=== PATIENT | male | born 1995 | race Caucasian/White ===

== ENCOUNTER 2017-08-17 13:38 | Inpatient (IN) ==
[2017-08-17 14:28] LABS: Bilirubin,Urine Small (Negative); Blood,Urine Negative (Negative); Clarity,Urine Clear (Clear); Color,Urine Dark Yellow (Yellow); Glucose,Urine (UA) Normal (Normal); Ketones,Urine Negative (Negative); Leukocyte Esterase,Urine Negative (Negative); Nitrite,Urine Negative (Negative); Protein,Urine 30 mg/dL (Neg-Trace); Specific Gravity,Urine > 1.030 (1.010-1.025); Urobilinogen,Urine Normal (Normal)
[2017-08-17 14:31] LABS: Bacteria,Urine None Seen per hpf (None-Few); Squamous Epithelial Cell,Urine Many per lpf (None-Few); WBC,Urine 0-3 per hpf (0-3)
[2017-08-17 14:39] LABS: Amphetamine Screen,Urine Negative ng/mL (Cutoff=1000); Barbiturate Screen,Urine Negative ng/mL (Cutoff=200); Benzodiazepines Screen,Urine Negative ng/mL (Cutoff=200); Cannabinoid Screen,Urine Negative ng/mL (Cutoff = 50); Cocaine Screen,Urine Negative ng/mL (Cutoff= 300); Opiate Screen,Urine Negative ng/mL (Cutoff=300); Phencyclidine Screen,Urine Negative ng/mL (Cutoff=25)
[2017-08-17 14:47] LABS: Acetaminophen < 1.0 mcg/mL (10-30); Basophils # 0.1 K/mcL (0.0-0.2); Basophils % 0.6 %; Eosinophils # 0.1 K/mcL (0.0-0.6); Eosinophils % 1.5 %; Ethanol < 10 mg/dL (0-10); Hematocrit 45.9 % (37.5-50.1); Hemoglobin 15.8 g/dL (12.9-16.9); Immature Granulocytes % 0.5 % (0-4); Lymphocytes # 1.4 K/mcL (0.6-4.6); Lymphocytes % 17.6 %; Mean Corpuscular HGB Conc 34.4 g/dL (31.6-35.5); Mean Corpuscular Hemoglobin 28.1 pg (28.0-33.3); Mean Corpuscular Volume 81.5 fL (83.0-100.0); Mean Platelet Volume 9.5 fL (9.4-12.4); Monocytes # 0.7 K/mcL (0.0-1.3); Monocytes % 8.2 %; Neutrophils # 5.6 K/mcL (1.6-8.9); Nucleated Red Blood Cells 0.3 /100 WBC (0); Platelet Count 271 K/mcL (140-400); Red Blood Count 5.63 M/mcL (4.19-5.50); Red Cell Distribution Width 12.4 % (11.5-14.5); Salicylate < 5.0 mg/dL (15.0-30.0); Segmented Neutrophils % 71.6 %
[2017-08-17 14:51] LABS: BUN/Creatinine Ratio 13 (6-26); Blood Urea Nitrogen 10 mg/dL (6-20); Carbon Dioxide 31 mEq/L (23-29); Chloride 102 mEq/L (98-107); Glucose 101 mg/dL (70-105); Osmolality,Calculated 289 (280-300); Potassium 3.8 mEq/L (3.5-5.1); Sodium 140 mEq/L (136-145); eGFR For African Americans > 60 (> 60); eGFR For Non-African Americans > 60 (> 60)
[2017-08-17 14:52] LABS: Mucus,Urine Many (Few)
--- NOTE | 2017-08-17 15:08 | Emergency Department Note ---
Disposition Clinical Impression: Suicidal ideation Disposition: Admitted As Inpatient Condition: Fair Psych HPI - General Chief Complaint: ED Psychiatric Symptoms Stated Complaint: SI Time Seen by Provider: 08/17/17 14:32 Source: patient Nursing Notes Reviewed: Yes Vital Signs Reviewed: Yes - History of Present Illness HPI Narrative: 22-year-old comes emergency room because of suicidal ideations. 2 days ago he had a gun with plan to shoot himself but his roommate came home and so he decided not to do it. He recently lost his job due to substance abuse. He has ongoing drug abuse issues mostly in the form of crushing and snorting oral pain medications including Percocet, OxyContin and Neurontin. No IV drug abuse. He denies any toxic ingestions in the past 48 hours. Pt complaint: suicidal ideation If medical clearance, reason: psychiatric condition Onset (ago): day(s) Duration: constant History of similar episodes: Yes Improves with: none Worsens with: drug use, other Context: recent drug abuse Alleged intoxication: No Associated Psychiatric Symptoms: depression - Related Data Home Medications Medication Instructions Recorded Confirmed No Known Home Drugs 08/10/16 08/10/16 Allergies Allergy/AdvReac Type Severity Reaction Status Date / Time Amoxicillin [From Augmentin] Allergy Hives Verified 08/10/16 11:08 cephalexin [From Keflex] Allergy Hives Verified 08/10/16 11:08 clavulanic acid Allergy Hives Verified 08/10/16 11:08 [From Augmentin] Erythromycin Base Allergy Hives Verified 08/10/16 11:08 All systems ED: reviewed and negative except as stated. Constitutional: Denies: fever Cardiovascular: Denies: chest pain, palpitations Psychiatric: Reports: depression, suicidal thoughts. Denies: anxiety Past Medical History - Past Medical History Attestation: Yes The following information was validated with the patient. Medical history: Reports: no medical history Psychiatric history: Reports: bipolar, PTSD, prior suicide attempt, previous psychiatric hospitalization - Social History Smoking Status: Never smoker Smokeless Tobacco Status: Yes Alcohol use: Reports: none Drug use: Reports: opiates, prescription drug abuse Physical Exam - General Limitations: no limitations General appearance: alert - Head Head exam: atraumatic, normocephalic - ENT ENT exam: normal exam, normal oropharynx - Neck Neck exam: Present: normal inspection - Chest Chest inspection: Present: normal inspection - Respiratory Respiratory exam: Present: normal lung sounds bilaterally. Absent: respiratory distress - Cardiovascular Cardiovascular exam: Present: regular rate. Absent: normal rhythm - Abdominal Exam Abdominal exam: Present: soft, Non-Tender - Extremities Exam Extremities exam: Present: normal inspection - Expanded Lower Extremity Exam Neurovascular/Tendon exam: Present: normal capillary refill - Back Exam Back exam: Present: normal inspection - Neurological Exam Neurological exam: Present: alert, oriented X3 - Psychiatric Psychiatric exam: Present: normal affect. Absent: agitated, anxious - Skin Skin exam: Present: warm, dry Course - Reevaluation(s) Reevaluation #1: Medically cleared for psychiatric evaluation Time: 15:10 Vital Signs Temperature 98.4 F 08/17/17 13:47 Pulse Rate 105 08/17/17 13:47 Respiratory Rate 18 08/17/17 13:47 Blood Pressure 144/71 08/17/17 13:47 O2 Sat by Pulse Oximetry 98 08/17/17 13:47 Temperature 98.7 F 08/17/17 21:00 Pulse Rate 85 08/17/17 21:00 Respiratory Rate 16 08/17/17 21:00 Blood Pressure 119/75 08/17/17 21:00 O2 Sat by Pulse Oximetry 98 08/17/17 13:47 Oxygen Delivery Oxygen Delivery Room Air Psych - Lab Data Result diagrams: 08/17/17 13:53 08/17/17 13:53 Lab Results 08/17/17 08/17/17 08/17/17 Range/Units 13:53 13:53 13:53 WBC 7.9 (4.3-11.1) K/mcL RBC 5.63 H (4.19-5.50) M/mcL Hgb 15.8 (12.9-16.9) g/dL Hct 45.9 (37.5-50.1) % MCV 81.5 L (83.0-100.0) fL MCH 28.1 (28.0-33.3) pg MCHC 34.4 (31.6-35.5) g/dL RDW 12.4 (11.5-14.5) % Plt Count 271 (140-400) K/mcL MPV 9.5 (9.4-12.4) fL Immature Gran % 0.5 (0-4) % Seg Neutrophils % 71.6 % Lymphocytes % 17.6 % Monocytes % 8.2 % Eosinophils % 1.5 % Basophils % 0.6 % Neutrophils # 5.6 (1.6-8.9) K/mcL Lymphocytes # 1.4 (0.6-4.6) K/mcL Monocytes # 0.7 (0.0-1.3) K/mcL Eosinophils # 0.1 (0.0-0.6) K/mcL Basophils # 0.1 (0.0-0.2) K/mcL Nucleated RBCs/100 WBC 0.3 H (0) /100 WBC Sodium (136-145) mEq/L Potassium (3.5-5.1) mEq/L Chloride (98-107) mEq/L Carbon Dioxide (23-29) mEq/L BUN (6-20) mg/dL Creatinine (0.70-1.30) mg/dL Est GFR ( Amer) (> 60) Est GFR (Non-Af Amer) (> 60) BUN/Creatinine Ratio (6-26) Glucose (70-105) mg/dL Calculated Osmolality (280-300) Calcium (8.6-10.3) mg/dL Urine Color Dark Yellow (Yellow) Urine Clarity Clear (Clear) Urine pH 6.0 (5.0-8.0) pH Units Ur Specific [place] > 1.030 H (1.010-1.025) Urine Protein 30 H (Neg-Trace) mg/dL Urine Glucose (UA) Normal (Normal) mg/dL Urine Ketones Negative (Negative) mg/dL Urine Blood Negative (Negative) Urine Nitrite Negative (Negative) Urine Bilirubin Small H (Negative) Urine Urobilinogen Normal (Normal) mg/dL Ur Leukocyte Esterase Negative (Negative) Urine Microscopic RBC 3-5 H (0-3) per hpf Urine Microscopic WBC 0-3 (0-3) per hpf Ur Squamous Epith Cells Many H (None-Few) per lpf Urine Bacteria None Seen (None-Few) per hpf Urine Mucus Many H (Few) Ur Culture Indicated? NO (NO) Salicylates (15.0-30.0) mg/dL Urine Opiates Screen Negative (Lyfupu=823) ng/mL Acetaminophen (10-30) mcg/mL Ur Barbiturates Screen Negative (Vyqoiz=233) ng/mL Ur Phencyclidine Scrn Negative (Cutoff=25) ng/mL Ur Amphetamines Screen Negative (Rkisoz=9748) ng/mL U Benzodiazepines Scrn Negative (Scerly=648) ng/mL Urine Cocaine Screen Negative (Cutoff= 300) ng/mL U Marijuana (THC) Screen Negative (Cutoff = 50) ng/mL Ethyl Alcohol (0-10) mg/dL 08/17/17 Range/Units 13:53 WBC (4.3-11.1) K/mcL RBC (4.19-5.50) M/mcL Hgb (12.9-16.9) g/dL Hct (37.5-50.1) % MCV (83.0-100.0) fL MCH (28.0-33.3) pg MCHC (31.6-35.5) g/dL RDW (11.5-14.5) % Plt Count (140-400) K/mcL MPV (9.4-12.4) fL Immature Gran % (0-4) % Seg Neutrophils % % Lymphocytes % % Monocytes % % Eosinophils % % Basophils % % Neutrophils # (1.6-8.9) K/mcL Lymphocytes # (0.6-4.6) K/mcL Monocytes # (0.0-1.3) K/mcL Eosinophils # (0.0-0.6) K/mcL Basophils # (0.0-0.2) K/mcL Nucleated RBCs/100 WBC (0) /100 WBC Sodium 140 (136-145) mEq/L Potassium 3.8 (3.5-5.1) mEq/L Chloride 102 (98-107) mEq/L Carbon Dioxide 31 H (23-29) mEq/L BUN 10 (6-20) mg/dL Creatinine 0.80 (0.70-1.30) mg/dL Est GFR ( Amer) > 60 (> 60) Est GFR (Non-Af Amer) > 60 (> 60) BUN/Creatinine Ratio 13 (6-26) Glucose 101 (70-105) mg/dL Calculated Osmolality 289 (280-300) Calcium 10.0 (8.6-10.3) mg/dL Urine Color (Yellow) Urine Clarity (Clear) Urine pH (5.0-8.0) pH Units Ur Specific [place] (1.010-1.025) Urine Protein (Neg-Trace) mg/dL Urine Glucose (UA) (Normal) mg/dL Urine Ketones (Negative) mg/dL Urine Blood (Negative) Urine Nitrite (Negative) Urine Bilirubin (Negative) Urine Urobilinogen (Normal) mg/dL Ur Leukocyte Esterase (Negative) Urine Microscopic RBC (0-3) per hpf Urine Microscopic WBC (0-3) per hpf Ur Squamous Epith Cells (None-Few) per lpf Urine Bacteria (None-Few) per hpf Urine Mucus (Few) Ur Culture Indicated? (NO) Salicylates < 5.0 L (15.0-30.0) mg/dL Urine Opiates Screen (Yvozns=008) ng/mL Acetaminophen < 1.0 L (10-30) mcg/mL Ur Barbiturates Screen (Nuacrd=456) ng/mL Ur Phencyclidine Scrn (Cutoff=25) ng/mL Ur Amphetamines Screen (Pshzrq=5676) ng/mL U Benzodiazepines Scrn (Ztszku=929) ng/mL Urine Cocaine Screen (Cutoff= 300) ng/mL U Marijuana (THC) Screen (Cutoff = 50) ng/mL Ethyl Alcohol < 10 (0-10) mg/dL Psychiatric Medical Clearance - Medical Clearance Checklist Medical History: Acute hyperventilation (Inactive) No Social History Section defined Current Vitals: Last Vital Signs Temp 98.7 F 08/17/17 21:00 Pulse 85 08/17/17 21:00 Resp 16 08/17/17 21:00 BP 119/75 08/17/17 21:00 Pulse Ox 98 08/17/17 13:47 Psychiatric Lab Panel: Drug Levels and Toxicity 08/17/17 08/17/17 13:53 13:53 Urine Opiates Screen Negative Acetaminophen < 1.0 L Ur Barbiturates Screen Negative Ur Phencyclidine Scrn Negative Ur Amphetamines Screen Negative U Benzodiazepines Scrn Negative Urine Cocaine Screen Negative U Marijuana (THC) Screen Negative Ethyl Alcohol < 10 Abnormal Labs: Abnormal lab results RBC 5.63 M/mcL (4.19-5.50) H 08/17/17 13:53 MCV 81.5 fL (83.0-100.0) L 08/17/17 13:53 Nucleated RBCs/100 WBC 0.3 /100 WBC (0) H 08/17/17 13:53 Carbon Dioxide 31 mEq/L (23-29) H 08/17/17 13:53 Ur Specific [place] > 1.030 (1.010-1.025) H 08/17/17 13:53 Urine Protein 30 mg/dL (Neg-Trace) H 08/17/17 13:53 Urine Bilirubin Small (Negative) H 08/17/17 13:53 Urine Microscopic RBC 3-5 per hpf (0-3) H 08/17/17 13:53 Ur Squamous Epith Cells Many per lpf (None-Few) H 08/17/17 13:53 Urine Mucus Many (Few) H 08/17/17 13:53 Salicylates < 5.0 mg/dL (15.0-30.0) L 08/17/17 13:53 Acetaminophen < 1.0 mcg/mL (10-30) L 08/17/17 13:53 Statement of Medical Clearance: I have evaluated the patient, reviewed diagnostic information, and certify that the patient's medical condition is sufficiently stable that transfer to the psychiatric unit does not pose a significant risk of deterioration.
[2017-08-17] MEDS ORDERED: Acetaminophen 325 MG TABLET PO PRN (17:14)
[2017-08-17] MEDS ORDERED: *HR* LORazepam 1 MG TABLET PO PRN (17:14)
[2017-08-17] MEDS ORDERED: *HR* LORazepam 2 MG/ML VIAL IM PRN (17:14)
[2017-08-17] MEDS ORDERED: Mag Hydrox/Al Hydrox/Simeth 30 ML UDC PO PRN (17:14)
[2017-08-17] MEDS ORDERED: Haloperidol Lactate 5 MG/ML VIAL IM PRN (17:14)
[2017-08-17] MEDS ORDERED: MOM Conc 10 ML UD.LIQ PO PRN (17:14)
[2017-08-17] MEDS: traZODone 50 MG TABLET PO PRN (21:50)
--- NOTE | 2017-08-18 10:48 | Psychiatry History & Physical ---
Date of Encounter: 08/18/17 Time of Encounter: 10:25 History of Present Illness Patient Stated Chief Complaint: i have been suicidal Medicare Admission Attestation: For traditional Medicare patients the provided hospital inpatient services are reasonable and necessary and in the case of services not specified as inpatient -only under 42 CFR 419.22 (n), that they are appropriately provided as inpatient services in accordance 42 CFR 412.3. For Critical Access Hospital the patient may reasonably be expected to be discharged or transferred to a hospital within 96 hours after admission to the Critical Access Hospital. Admitted From: Emergency Dept Plans for Post Hospital Care: Home History of Present Illness: Mr. Canas is a 22 year old male evaluated today , admitted from ED because of suicidal ideations, this is his 3 admission . 2 days ago he had a gun with plan to shoot himself but his roommate came home and so he decided not to do it. { roomates gun} He recently lost his job due to substance abuse. He has ongoing drug abuse issues mostly in the form of crushing and snorting oral pain medications including Percocet, OxyContin and Neurontin. No IV drug abuse. Patient was admitted in 07/26 ,08/23 to for substance use , suicidal ideation and depression . 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 AT present feeling sad , angry , depress, lack of motivation , suicidal thoughts not as much as before but still hopeless, worthless, useless and guilt. He relapsed on opiates last used 4-5 days ago , denies other drugs or alcohol. no psychosis , no bryson. denies any legal problems, raised by grand parents , mother has mental illness. Past Med Surg Social Fam HX - Past Medical History Medical history: no medical history - Past Surgical History Surgical History: no surgical history - Social History Smoking Status: Never smoker Smokeless Tobacco Status: Yes Alcohol use: none Drug use: opiates, prescription drug abuse Occupational status: previously employed Current living situation: Home, With Family Activity Level: Independent ambulation Recent Out of Country Travel Within the Last 8 Weeks: No Exposure or Possible Exposure to Illness During Travel: No Medications & Allergies No Known Home Drugs 08/10/16 [History] 3 Allergy/AdvReac Type Severity Reaction Status Date / Time Amoxicillin [From Augmentin] Allergy Hives Verified 08/10/16 11:08 cephalexin [From Keflex] Allergy Hives Verified 08/10/16 11:08 clavulanic acid Allergy Hives Verified 08/10/16 11:08 [From Augmentin] Erythromycin Base Allergy Hives Verified 08/10/16 11:08 Review of Systems Psychiatric: Reports: depression, abnormal sleep pattern, suicidal ideation, change in appetite, hopelessness, irritability Mental Status Exam Patient orientation: Yes Person, Yes Time, Yes Place Level of alertness: Alert Patient appearance: Appropriate Behavior: cooperative, anxious, withdrawn Psychomotor activity: Normal Eye contact: Maintains Eye Contact Mood description: Depressed, Anxious Affect description: congruent with mood, dysphoric Speech pattern: Coherent, Slowed Speech volume: Normal Thought process: Logical Thought content: Yes Suicidal ideation, Yes Guilt Attention span: Capable of Focused Attention Memory description: Grossly Intact Patient reliability: Reliable Historian Intelligence estimate: Average Judgment: Poor Insight: Partial Exam - HEENT Head exam IM: Present: atraumatic, normal inspection, normocephalic Eye exam IM: Present: normal appearance ENT exam IM: Present: normal exam - Neurological Neurological exam IM: Present: alert, CN II-XII intact, normal gait, oriented X3 Results - Vital Signs Vital signs: Temp Pulse Resp BP Pulse Ox 98.3 F 79 16 132/77 98 08/18/17 09:00 08/18/17 09:00 08/18/17 09:00 08/18/17 09:00 08/17/17 13:47 - Labs Labs: Laboratory Last Values WBC 7.9 K/mcL (4.3-11.1) 08/17/17 13:53 RBC 5.63 M/mcL (4.19-5.50) H 08/17/17 13:53 Hgb 15.8 g/dL (12.9-16.9) 08/17/17 13:53 Hct 45.9 % (37.5-50.1) 08/17/17 13:53 MCV 81.5 fL (83.0-100.0) L 08/17/17 13:53 MCH 28.1 pg (28.0-33.3) 08/17/17 13:53 MCHC 34.4 g/dL (31.6-35.5) 08/17/17 13:53 RDW 12.4 % (11.5-14.5) 08/17/17 13:53 Plt Count 271 K/mcL (140-400) 08/17/17 13:53 MPV 9.5 fL (9.4-12.4) 08/17/17 13:53 Immature Gran % 0.5 % (0-4) 08/17/17 13:53 Seg Neutrophils % 71.6 % 08/17/17 13:53 Lymphocytes % 17.6 % 08/17/17 13:53 Monocytes % 8.2 % 08/17/17 13:53 Eosinophils % 1.5 % 08/17/17 13:53 Basophils % 0.6 % 08/17/17 13:53 Neutrophils # 5.6 K/mcL (1.6-8.9) 08/17/17 13:53 Lymphocytes # 1.4 K/mcL (0.6-4.6) 08/17/17 13:53 Monocytes # 0.7 K/mcL (0.0-1.3) 08/17/17 13:53 Eosinophils # 0.1 K/mcL (0.0-0.6) 08/17/17 13:53 Basophils # 0.1 K/mcL (0.0-0.2) 08/17/17 13:53 Nucleated RBCs/100 WBC 0.3 /100 WBC (0) H 08/17/17 13:53 Sodium 140 mEq/L (136-145) 08/17/17 13:53 Potassium 3.8 mEq/L (3.5-5.1) 08/17/17 13:53 Chloride 102 mEq/L (98-107) 08/17/17 13:53 Carbon Dioxide 31 mEq/L (23-29) H 08/17/17 13:53 BUN 10 mg/dL (6-20) 08/17/17 13:53 Creatinine 0.80 mg/dL (0.70-1.30) 08/17/17 13:53 Est GFR ( Amer) > 60 (> 60) 08/17/17 13:53 Est GFR (Non-Af Amer) > 60 (> 60) 08/17/17 13:53 BUN/Creatinine Ratio 13 (6-26) 08/17/17 13:53 Glucose 101 mg/dL (70-105) 03 13:53 Calculated Osmolality 289 (280-300) 08/17/17 13:53 Calcium 10.0 mg/dL (8.6-10.3) 08/17/17 13:53 Urine Color Dark Yellow (Yellow) 08/17/17 13:53 Urine Clarity Clear (Clear) 08/17/17 13:53 Urine pH 6.0 pH Units (5.0-8.0) 03 13:53 Ur Specific [place] > 1.030 (1.010-1.025) H 08/17/17 13:53 Urine Protein 30 mg/dL (Neg-Trace) H 08/17/17 13:53 Urine Glucose (UA) Normal mg/dL (Normal) 08/17/17 13:53 Urine Ketones Negative mg/dL (Negative) 08/17/17 13:53 Urine Blood Negative (Negative) 08/17/17 13:53 Urine Nitrite Negative (Negative) 08/17/17 13:53 Urine Bilirubin Small (Negative) H 08/17/17 13:53 Urine Urobilinogen Normal mg/dL (Normal) 08/17/17 13:53 Ur Leukocyte Esterase Negative (Negative) 08/17/17 13:53 Urine Microscopic RBC 3-5 per hpf (0-3) H 08/17/17 13:53 Urine Microscopic WBC 0-3 per hpf (0-3) 03 13:53 Ur Squamous Epith Cells Many per lpf (None-Few) H 08/17/17 13:53 Urine Bacteria None Seen per hpf (None-Few) 08/17/17 13:53 Urine Mucus Many (Few) H 08/17/17 13:53 Ur Culture Indicated? NO (NO) 08/17/17 13:53 Salicylates < 5.0 mg/dL (15.0-30.0) L 08/17/17 13:53 Urine Opiates Screen Negative ng/mL (Hlowuv=241) 08/17/17 13:53 Acetaminophen < 1.0 mcg/mL (10-30) L 08/17/17 13:53 Ur Barbiturates Screen Negative ng/mL (Msswto=432) 08/17/17 13:53 Ur Phencyclidine Scrn Negative ng/mL (Cutoff=25) 08/17/17 13:53 Ur Amphetamines Screen Negative ng/mL (Aattlv=1752) 08/17/17 13:53 U Benzodiazepines Scrn Negative ng/mL (Lxptfu=444) 08/17/17 13:53 Urine Cocaine Screen Negative ng/mL (Cutoff= 300) 08/17/17 13:53 U Marijuana (THC) Screen Negative ng/mL (Cutoff = 50) 08/17/17 13:53 Ethyl Alcohol < 10 mg/dL (0-10) 08/17/17 13:53 Assessment and Plan (1) Suicidal ideation Current visit: Yes Status: Acute Plan: Admit inpatient for safety and stabilization, Close observation, Suicide Precautions per unit protocol, Encourage participation in unit milieu, Group Therapy, Monitor sleep, Monitor appetite, Secure weapons, Family/Supportive other meeting Additional Plan: patient remains suicidal , denies any weapons at home . Risks, benefits, side effects, alternatives discussed w/pt: Yes Patient agreeable to treatment: Yes Plans for Post Hospital Care: at Home (2) Major depressive disorder, recurrent, severe w/o psychotic behavior Current visit: Yes Status: Acute Plan: Admit inpatient for safety and stabilization, Close observation, Suicide Precautions per unit protocol, Encourage participation in unit milieu, Group Therapy, Monitor sleep, Monitor appetite, Family/Supportive other meeting Additional Plan: Patient remains suicidal and needs inpatient care for stabilization and safety. will start medications zoloft 50 mg Risks, benefits, side effects, alternatives discussed w/pt: Yes Patient agreeable to treatment: Yes Plans for Post Hospital Care: at Home
[2017-08-18] MEDS: traZODone 50 MG TABLET PO PRN (21:31)
--- NOTE | 2017-08-19 11:27 | Psychiatry Progress Note ---
Date of Encounter: 08/19/17 Time of Encounter: 11:10 Subjective Interval history: Patient seen today , case d/w staff , patient compliant with treatment plan. feeling better , slept well , denies suicidal thoughts, depression is ther but feels medications helping . denies side effects. continue same treatment plan. Review of Systems Psychiatric: Reports: depression, abnormal sleep pattern, suicidal ideation, change in appetite, hopelessness, irritability Results - Vital Signs Vital Signs: Temp Pulse Resp BP Pulse Ox 97.9 F 74 14 122/81 98 08/19/17 09:00 08/19/17 09:00 08/19/17 09:00 08/19/17 09:00 08/17/17 13:47 Assessment and Plan (1) Suicidal ideation Current visit: Yes Status: Acute Risks, benefits, side effects, alternatives discussed w/pt: Yes Patient agreeable to treatment: Yes (2) Major depressive disorder, recurrent, severe w/o psychotic behavior Current visit: Yes Status: Acute Risks, benefits, side effects, alternatives discussed w/pt: Yes Patient agreeable to treatment: Yes Consult Discharge Plan - Plan Referrals: [place] [facility] [place] - 08/23/17 12:30 pm (The above appointment is with Salma Reynolds. When you come to your first appointment, you will be completing paperwork, meeting with a counselor, and developing a treatment plan. You will receive follow- up appointments for on-going services , which could include community support, mental health and substance abuse counseling, groups/partial hospitalization programming, medication assisted treatment, and psychiatric medication management. Please bring the following with you to your first visit to the clinic: 1) proof of household income (two consecutive pay stubs, social security award letter, bank statement, statement letter from [facility], child support statement, IRS 1040 or W2 form, or a statement from the person who financially supports you stating they help provide for your basic needs), 2) proof of residency (drivers license, a piece of mail showing your address, a statement from person you live with verifying you live at their address), 3) your social security card, 4) photo ID, 5) your insurance card (if you have commercial insurance you must call to obtain a prior authorization number before you arrive to your first appointment) and 6) if you do not have insurance but have applied for Medicaid, please bring verification you have applied. The above appointment(s) reflects first availability. You may contact the office regularly to check for cancellations that may allow you to be seen sooner.) [facility] [employer] [facility] [place] [Outside] - 08/24/17 1:15 pm (The above appointment is with Darryn Garcia for primary healthcare and medication management services.) Psychiatry Exam - Constitutional Vitals: Temp Pulse Resp BP Pulse Ox 97.9 F 74 14 122/81 98 08/19/17 09:00 08/19/17 09:00 08/19/17 09:00 08/19/17 09:00 08/17/17 13:47 General appearance: age & developmentally appropriate - Musculoskeletal Gait: normal Station: relaxed Strength & Tone: normal for patient - Psychiatric Patient Orientation: Yes Person, Yes Time, Yes Place Level of alertness: Alert Behavior: cooperative, anxious Psychomotor activity: Normal Eye Contact: Maintains Eye Contact Mood Description: Depressed Affect description: congruent with mood Speech Volume: Normal Speech pattern: coherent Language & Vocabulary: consistent with education Thought Process: Intact Thought Content: Yes Guilt Attention Span Ability: Capable of Focused Attention Memory Description: Grossly Intact Patient Reliability: Reliable Historian Intelligence Estimate: Average Judgment: Limited Insight: Full
[2017-08-19] MEDS: hydrOXYzine pamoate 25 MG CAPSULE PO PRN (21:28)
[2017-08-19] MEDS: traZODone 50 MG TABLET PO PRN (21:28)
--- NOTE | 2017-08-20 11:17 | Psychiatry Progress Note ---
Date of Encounter: 08/20/17 Time of Encounter: 10:25 Subjective Interval history: Patient seen today , case d/w staff. Patient is admitted for depression and suicidal ideation. at present he is still depress but not suicidal, depression is not as bad as before , it is getting better as per him. he is concerned about STD , states i want to be tested as i have not been safe and i messed up on drugs and is worried about it. at present denies any s/s , no rash , no discharge , no problem with urination, states i just want to be tested as i am worried. compliant with medication , as depression better when with peers but when in his room and by himself he feels down , crying spells when alone, he admits he can not do by himself and is needing support. Will increase zoloft to 100 mg , will start trazodone 50 mg hs schedule as patient taking every night as it helps him sleep and no grogginess in morning. plan d/w patient and he agreed. Review of Systems Psychiatric: Reports: depression, abnormal sleep pattern, suicidal ideation, change in appetite, hopelessness, irritability Results - Vital Signs Vital Signs: Temp Pulse Resp BP Pulse Ox 97.8 F 67 16 135/84 98 08/20/17 09:00 08/20/17 09:00 08/20/17 09:00 08/20/17 09:00 08/17/17 13:47 Assessment and Plan (1) Suicidal ideation Current visit: Yes Status: Acute Risks, benefits, side effects, alternatives discussed w/pt: Yes Patient agreeable to treatment: Yes (2) Major depressive disorder, recurrent, severe w/o psychotic behavior Current visit: Yes Status: Acute Risks, benefits, side effects, alternatives discussed w/pt: Yes Patient agreeable to treatment: Yes Consult Discharge Plan - Plan [facility] 12:30 pm (The above appointment is with Salma Reynolds. When you come to your first appointment, you will be completing paperwork, meeting with a counselor, and developing a treatment plan. You will receive follow- up appointments for on-going services , which could include community support, mental health and substance abuse counseling, groups/partial hospitalization programming, medication assisted treatment, and psychiatric medication management. Please bring the following with you to your first visit to the clinic: 1) proof of household income (two consecutive pay stubs, social security award letter, bank statement, statement letter from [facility], child support statement, IRS 1040 or W2 form, or a statement from the person who financially supports you stating they help provide for your basic needs), 2) proof of residency (drivers license, a piece of mail showing your address, a statement from person you live with verifying you live at their address), 3) your social security card, 4) photo ID, 5) your insurance card (if you have commercial insurance you must call to obtain a prior authorization number before you arrive to your first appointment) and 6) if you do not have insurance but have applied for Medicaid, please bring verification you have applied. The above appointment(s) reflects first availability. You may contact the office regularly to check for cancellations that may allow you to be seen sooner.) [facility] Usability Architect [place] [Outside] - 08/24/17 1:15 pm (The above appointment is with Darryn Garcia for primary healthcare and medication management services.) Psychiatry Exam - Constitutional Vitals: Temp Pulse Resp BP Pulse Ox 97.8 F 67 16 135/84 98 08/20/17 09:00 08/20/17 09:00 08/20/17 09:00 08/20/17 09:00 08/17/17 13:47
[2017-08-20] MEDS: traZODone 50 MG TABLET PO SCH (21:20)
[2017-08-20] MEDS: hydrOXYzine pamoate 25 MG CAPSULE PO PRN (21:22)
--- NOTE | 2017-08-21 17:30 | Psychiatry Progress Note ---
Date of Encounter: 08/21/17 Time of Encounter: 16:20 Subjective Interval history: Patient is seen for follow-up. Case discussed with treatment team. Patient is reported compliant with medication denies any side effects and denies any problem with sleep. He is interested in outpatient follow-up substance abuse and depression. It discharge plans are ongoing. Review of Systems Psychiatric: Reports: depression, abnormal sleep pattern, change in appetite, irritability Results - Vital Signs Vital Signs: Temp Pulse Resp BP Pulse Ox 98.1 F 59 16 135/86 98 08/21/17 09:00 08/21/17 09:00 08/21/17 09:00 08/21/17 09:00 08/17/17 13:47 Assessment and Plan (1) Major depressive disorder, recurrent, severe w/o psychotic behavior Current visit: Yes Status: Acute Plan: Continue hospitalization, Close observation, Suicide Precautions per unit protocol, Encourage participation in unit milieu, Group Therapy, Monitor sleep, Monitor appetite Risks, benefits, side effects, alternatives discussed w/pt: Yes Patient agreeable to treatment: Yes Consult Discharge Plan - Plan [facility]/23/17 12:30 pm (The above appointment is with Salma Reynolds. When you come to your first appointment, you will be completing paperwork, meeting with a counselor, and developing a treatment plan. You will receive follow- up appointments for on-going services , which could include community support, mental health and substance abuse counseling, groups/partial hospitalization programming, medication assisted treatment, and psychiatric medication management. Please bring the following with you to your first visit to the clinic: 1) proof of household income (two consecutive pay stubs, social security award letter, bank statement, statement letter from [facility], child support statement, IRS 1040 or W2 form, or a statement from the person who financially supports you stating they help provide for your basic needs), 2) proof of residency (drivers license, a piece of mail showing your address, a statement from person you live with verifying you live at their address), 3) your social security card, 4) photo ID, 5) your insurance card (if you have commercial insurance you must call to obtain a prior authorization number before you arrive to your first appointment) and 6) if you do not have insurance but have applied for Medicaid, please bring verification you have applied. The above appointment(s) reflects first availability. You may contact the office regularly to check for cancellations that may allow you to be seen sooner.) [facility] Monitor [place] [Outside] - 08/24/17 1:15 pm (The above appointment is with Darryn Garcia for primary healthcare and medication management services.) Psychiatry Exam - Constitutional Vitals: Temp Pulse Resp BP Pulse Ox 98.1 F 59 16 135/86 98 08/21/17 09:00 08/21/17 09:00 08/21/17 09:00 08/21/17 09:00 08/17/17 13:47 General appearance: age & developmentally appropriate, well-groomed, well- nourished - Musculoskeletal Gait: normal Station: relaxed Strength & Tone: normal for patient - Psychiatric Patient Orientation: Yes Person, Yes Time, Yes Place Level of alertness: Alert Behavior: calm, cooperative, anxious Psychomotor activity: Normal Eye Contact: Maintains Eye Contact Mood Description: Euthymic/stable, Anxious Affect description: congruent with mood, euthymic Speech Volume: Normal Speech pattern: normal rate, normal rhythm, normal tone, fluent, spontaneous Language & Vocabulary: consistent with education Thought Process: Linear, Goal Oriented Thought Content: No Suicidal ideation, No Homicidal ideation, No Overt delusions Perceptual Disturbances: No Auditory hallucinations, No Visual hallucinations Attention Span Ability: Capable of Focused Attention Memory Description: Grossly Intact Patient Reliability: Reliable Historian Fund of knowledge: Yes abstraction ability, Yes aware of current events Intelligence Estimate: Average Judgment: Limited Insight: Partial
[2017-08-21] MEDS: traZODone 50 MG TABLET PO SCH (21:01)
[2017-08-21] MEDS: hydrOXYzine pamoate 25 MG CAPSULE PO PRN (21:04)
[2017-08-22 10:03] VITALS: BP 126/82
--- NOTE | 2017-08-22 10:35 | Discharge Summary ---
Date of Encounter: 08/22/17 Time of Encounter: 10:32 Diagnosis - Discharge Diagnosis (1) Major depressive disorder, recurrent, severe w/o psychotic behavior Status: Acute Medications - Discharge Medications Prescriptions: Sertraline [Zoloft] 100 mg PO DAILY #30 tablet traZODone [TraZODone] 50 mg PO HS PRN #30 tablet PRN Reason: Insomnia Sertraline [Zoloft] 100 mg PO DAILY #30 tablet 08/22/17 [Rx] traZODone [TraZODone] 50 mg PO HS PRN #30 tablet 08/22/17 [Rx] 3 Allergy/AdvReac Type Severity Reaction Status Date / Time Amoxicillin [From Augmentin] Allergy Hives Verified 08/10/16 11:08 cephalexin [From Keflex] Allergy Hives Verified 08/10/16 11:08 clavulanic acid Allergy Hives Verified 08/10/16 11:08 [From Augmentin] Erythromycin Base Allergy Hives Verified 08/10/16 11:08 Provider Date of admission: 08/17/17 16:50 Primary care physician: PCP NONE Discharging clinician: Jim Ruiz Psychiatry Exam - Constitutional Vitals: Temp Pulse Resp BP Pulse Ox 97.4 F L 72 16 126/82 98 08/22/17 09:00 08/22/17 09:00 08/22/17 09:00 08/22/17 09:00 08/17/17 13:47 General appearance: age & developmentally appropriate, well-groomed, well- nourished - Musculoskeletal Gait: normal Station: relaxed Strength & Tone: normal for patient - Psychiatric Patient Orientation: Yes Person, Yes Time, Yes Place Level of alertness: Alert Behavior: calm, cooperative Psychomotor activity: Normal Eye Contact: Maintains Eye Contact Mood Description: Euthymic/stable Affect description: congruent with mood, full range Speech Volume: Normal Speech pattern: normal rate, normal rhythm, normal tone, fluent, spontaneous Language & Vocabulary: consistent with education Thought Process: Linear, Goal Oriented Thought Content: No Suicidal ideation, No Homicidal ideation, No Overt delusions Perceptual Disturbances: No Auditory hallucinations, No Visual hallucinations Attention Span Ability: Capable of Focused Attention Memory Description: Grossly Intact Patient Reliability: Reliable Historian Fund of knowledge: Yes abstraction ability, Yes aware of current events Intelligence Estimate: Average Judgment: Limited Insight: Partial Hospital Course Hospital course: Mr. Canas is a 22 year old male admitted for suicidal ideation and recurrent depression and noncompliance with treatment in addition to being dependent opiates. For details of the admission please see H&P On the unit the patient was started on Zoloft and trazodone in addition to when necessary medication patient reported improved sleep and appetite he was able to participate in groups and his discharge plans work completed to refer him to outpatient treatment and therapy. 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 On discharge patient was medically stable denied any side effect of medication denied any suicidal ideation denied any psychotic symptoms and he was interested and outpatient follow-up for his depression and substance abuse. Patient is being discharged admitted in stable condition. - Time Spent with Patient Total time spent providing and/or coordinating discharge services: Assessment and Plan - Patient/Caregiver Discharge Instructions Activity: resume usual activities as tolerated Diet: regular diet - Follow up Plan Follow up with: [facility] - 08/23/17 12:30 pm (The above appointment is with Salma Reynolds. When you come to your first appointment, you will be completing paperwork, meeting with a counselor, and developing a treatment plan. You will receive follow- up appointments for on-going services , which could include community support, mental health and substance abuse counseling, groups/partial hospitalization programming, medication assisted treatment, and psychiatric medication management. Please bring the following with you to your first visit to the clinic: 1) proof of household income (two consecutive pay stubs, social security award letter, bank statement, statement letter from [facility], child support statement, IRS 1040 or W2 form, or a statement from the person who financially supports you stating they help provide for your basic needs), 2) proof of residency (drivers license, a piece of mail showing your address, a statement from person you live with verifying you live at their address), 3) your social security card, 4) photo ID, 5) your insurance card (if you have commercial insurance you must call to obtain a prior authorization number before you arrive to your first appointment) and 6) if you do not have insurance but have applied for Medicaid, please bring verification you have applied. The above appointment(s) reflects first availability. You may contact the office regularly to check for cancellations that may allow you to be seen sooner.) [facility] Real Time Analyst [place] [Outside] - 08/24/17 1:15 pm (The above appointment is with Darryn Garcia for primary healthcare and medication management services.) Functional capacity at discharge: independent ambulation Overall status at discharge: Stable Disposition: Home, Self-Care Quality - Multiple Antipsychotics Patient discharged on 2 or more antipsychotic medications: No Procedures - Procedures Procedures: Medication Management, Crisis Stabilization, Supportive Therapy, Group Therapy, Psychoeducational Therapy
== END 2017-08-22 12:25 | disposition home or self-care (01) | DRG 751 ==
LOC: EMEROO 13:38 → 1ANU 16:50 → SUATTDRO 16:50 → 1ANU 17:12
PROVIDERS: ADMIT Psychiatry & Neurology Psychiatry; ATTEND Psychiatry & Neurology Psychiatry

== ENCOUNTER 2022-02-09 17:35 | Inpatient (IN) ==
[2022-02-09 18:39] LABS: Basophils % 0.5 %; Eosinophils # 0.1 K/mcL (0.0-0.6); Eosinophils % 1.4 %; Hematocrit 40.8 % (37.5-50.1); Hemoglobin 14.7 g/dL (12.9-16.9); Immature Granulocytes % 0.4 % (0-4); Lymphocytes # 1.9 K/mcL (0.6-4.6); Mean Corpuscular Hemoglobin 29.1 pg (28.0-33.3); Mean Corpuscular Volume 80.6 fL (83.0-100.0); Mean Platelet Volume 9.3 fL (9.4-12.4); Monocytes # 0.6 K/mcL (0.0-1.3); Monocytes % 8.2 %; Platelet Count 270 K/mcL (140-400); Red Blood Count 5.06 M/mcL (4.19-5.50); Red Cell Distribution Width 12.5 % (11.5-14.5); Segmented Neutrophils % 64.5 %; White Blood Count 7.8 K/mcL (4.3-11.1)
[2022-02-09 18:48] LABS: Bilirubin,Urine Negative (Negative); Blood,Urine Negative (Negative); Clarity,Urine Clear (Clear); Color,Urine Yellow (Yellow); Glucose,Urine (UA) Normal (Normal); Ketones,Urine Trace mg/dL (Negative); Leukocyte Esterase,Urine Negative (Negative); Nitrite,Urine Negative (Negative); Protein,Urine Trace mg/dL (Neg-Trace); Specific Gravity,Urine > 1.030 (1.010-1.025)
[2022-02-09 19:03] LABS: Amphetamine Screen,Urine Negative ng/mL (Cutoff=1000); Barbiturate Screen,Urine Negative ng/mL (Cutoff=200); Benzodiazepines Screen,Urine Negative ng/mL (Cutoff=200); Cannabinoid Screen,Urine Negative ng/mL (Cutoff = 50); Cocaine Screen,Urine Negative ng/mL (Cutoff= 300); Opiate Screen,Urine Negative ng/mL (Cutoff=300); Phencyclidine Screen,Urine Negative ng/mL (Cutoff=25)
[2022-02-09 19:05] LABS: Acetaminophen < 10 mcg/mL (10-20); BUN/Creatinine Ratio 16 (6-26); Blood Urea Nitrogen 14 mg/dL (6-20); Calcium 9.6 mg/dL (8.6-10.3); Carbon Dioxide 27 mEq/L (23-29); Chloride 104 mEq/L (98-107); Ethanol < 10 mg/dL (Less than 10); Glucose 91 mg/dL (70-105); Osmolality,Calculated 288 (280-300); Potassium 3.6 mEq/L (3.5-5.1); Salicylate < 2.5 mg/dL (15.0-30.0); Sodium 139 mEq/L (136-145)
[2022-02-09 19:40] LABS: Influenza A PCR Negative (Negative); Influenza B PCR Negative (Negative); Resp. Syncytial Virus PCR Negative (Negative)
[2022-02-09 19:49] LABS: SARS-CoV-2 by PCR (In House) Negative (Negative)
[2022-02-09] MEDS ORDERED: *HR* LORazepam 2 MG/ML VIAL IM PRN (22:03)
[2022-02-09] MEDS ORDERED: Haloperidol Lactate 5 MG/ML VIAL IM PRN (22:03)
[2022-02-09] MEDS ORDERED: Acetaminophen 325 MG TABLET PO PRN (22:03)
[2022-02-09] MEDS ORDERED: haloperidoL 5 MG TABLET PO PRN (22:03)
[2022-02-09] MEDS ORDERED: *HR* LORazepam 1 MG TABLET PO PRN (22:03)
[2022-02-09] MEDS: hydrOXYzine pamoate 25 MG CAPSULE PO PRN (23:08)
[2022-02-09] MEDS: traZODone 50 MG TABLET PO PRN (23:09)
[2022-02-10] MEDS ORDERED: Mag Hydrox/Al Hydrox/Simeth 30 ML UDC PO PRN (08:11)
[2022-02-10] MEDS ORDERED: MOM Conc 10 ML UD.LIQ PO PRN (08:11)
[2022-02-10] MEDS ORDERED: FLUoxetine HCl 10 MG CAPSULE PO SCH (11:00)
[2022-02-10] MEDS: FLUoxetine HCl 10 MG CAPSULE PO SCH (11:10)
[2022-02-10] MEDS: traZODone 50 MG TABLET PO PRN (23:36)
[2022-02-10] MEDS: hydrOXYzine pamoate 25 MG CAPSULE PO PRN (23:37)
[2022-02-11 09:40] VITALS: O2SAT 99
[2022-02-11] MEDS: FLUoxetine HCl 10 MG CAPSULE PO SCH (09:48)
[2022-02-11] MEDS: hydrOXYzine pamoate 25 MG CAPSULE PO PRN (21:51)
[2022-02-11] MEDS: traZODone 50 MG TABLET PO PRN (21:51)
[2022-02-12] MEDS: FLUoxetine HCl 10 MG CAPSULE PO SCH (09:49)
[2022-02-12 10:35] VITALS: BP 108/68; PULSE 80; TEMP 97.6
== END 2022-02-12 13:00 | disposition home or self-care (01) | DRG 817 ==
LOC: EMEROOARM 17:35 → 1ANU 21:54
PROVIDERS: ADMIT Psychiatry & Neurology Psychiatry; ATTEND Psychiatry & Neurology Psychiatry